=== PATIENT | female | born 1945 | race Caucasian/White ===

== ENCOUNTER 2022-09-25 13:03 | Inpatient (IN) | payer MEDICARE ==
[2022-09-25 13:40] LABS: #Eosinphils 0.2 thou/uL (0.0-0.7); #Monocytes 0.6 thou/uL (0.11-0.59); %Basophils 0.3 % (0.0-1.0); %Eosinophils 3.1 % (0.0-10.0); %Lymphocytes 19.3 % (21.0-51.0); %Monocytes 8.7 % (0.0-10.0); %Neutrophils 68.3 % (42.0-75.0); Hemoglobin 9.4 g/dL (12.0-16.0); Mean Corpuscular Hemoglobin 29.3 pg (27.0-31.0); Mean Corpuscular Volume 94.4 fl (78.0-98.0); Platelet Count 303 10x3/uL (130-400); RBC Distribution Width 15.9 % (11.5-14.5); Red Blood Cell (RBC) Count 3.21 mill/uL (4.20-5.40); White Blood Cell (WBC) Count 7.4 10x3/uL (4.8-10.8)
[2022-09-25 14:04] LABS: ALT (SGPT) 11 U/L (8-55); AST (SGOT) 16 U/L (5-34); Albumin 3.7 g/dL (3.4-4.8); Alkaline Phosphatase 75 U/L (40-110); Anion Gap 15 mmol/L (10-20); BUN (Urea Nitrogen) 13 mg/dL (9.8-20.1); Bilirubin, Total 1.3 mg/dL (0.2-1.2); Calc. Creatinine Clearance 0 mL/min (70-130); Calcium 8.7 mg/dL (7.8-10.44); Carbon Dioxide 27 mmol/L (23-31); Chloride 102 mmol/L (98-107); Estimated GFR 69; Globulin 2.4 g/dL (2.4-3.5); Glucose 94 mg/dL (83-110); Potassium 4.6 mmol/L (3.5-5.1); Protein, Total 6.1 g/dL (5.8-8.1); Sodium 139 mmol/L (136-145)
[2022-09-25] MEDS ORDERED: hydrALAZINE 20 MG/ML VIAL ONE (14:45)
[2022-09-25 16:07] LABS: Bacteria/HPF 2+ HPF (None Seen); Bilirubin Negative (Negative); Blood, Urine Negative (Negative); CAUTI Indications for Culture Dysuria,urgency,freq; Clarity Clear (Clear); Glucose, Urine (Dipstick) Normal (Negative); Ketone, Urine Negative (Negative); Leukocyte Negative Leu/uL (Negative); Nitrite 2+ (Negative); Protein, Urine (Dipstick) 20 mg/dL (Neg-Trace); RBC/HPF 0-3 HPF (0-3); Specific Gravity, Urine 1.019 (1.002-1.036); Squamous Epithelial 0-3 HPF (0-3); pH, Urine 5.5 (5.0-9.0)
[2022-09-25 16:10] LABS: Urine Culture Reflex No No
[2022-09-25] MEDS ORDERED: Meropenem 1 GM in Sodium Chloride 0.9% 100 ML IVPB SCH (16:45)
[2022-09-25] MEDS ORDERED: Boostrix 0.5 ML (Tdap) VIAL (>/=7 yrs of age) ONE (18:00)
[2022-09-25] MEDS ORDERED: diphenhydrAMINE 50 MG/ML VIAL IVP SCH ×2 (20:15→21:30)
[2022-09-25] MEDS ORDERED: Ipratropium/Albuterol 3 ML NEB NEB PRN (20:15)
[2022-09-25] MEDS ORDERED: Furosemide 20 MG/2 ML VIAL SLOW IVP SCH (20:15)
[2022-09-25] MEDS ORDERED: Ipratropium/Albuterol 3 ML NEB NEB SCH (20:15)
[2022-09-25] MEDS ORDERED: LevoFLOXacin 250 mg/D5W 250 MG in Premix Bag 1 BAG IVPB SCH ×2 (21:00→22:00)
[2022-09-25 22:04] VITALS: BMI 39.3
[2022-09-25] MEDS: Flecainide 50 MG TAB PO SCH (23:06)
[2022-09-26] MEDS ORDERED: Non-Formulary Item 1 EACH (Tiotropium Bromide 4 GM Inhaler) PO PRN (00:56)
[2022-09-26] MEDS ORDERED: Ipratropium Bromide 2.5 ml Neb NEB PRN (01:03)
[2022-09-26 04:13] LABS: #Eosinphils 0.3 thou/uL (0.0-0.7); #Monocytes 0.6 thou/uL (0.11-0.59); #Neutrophils 5.1 thou/uL (1.40-6.50); %Basophils 0.3 % (0.0-1.0); %Eosinophils 4.2 % (0.0-10.0); %Lymphocytes 20.7 % (21.0-51.0); %Monocytes 8.1 % (0.0-10.0); %Neutrophils 66.2 % (42.0-75.0); Hemoglobin 8.8 g/dL (12.0-16.0); Mean Corpuscular HGB CONC 30.6 g/dL (32.0-36.0); Mean Corpuscular Hemoglobin 29.6 pg (27.0-31.0); Mean Platelet Volume 10.1 fL (7.4-10.4); Platelet Count 324 10x3/uL (130-400); RBC Distribution Width 15.9 % (11.5-14.5); Red Blood Cell (RBC) Count 2.97 mill/uL (4.20-5.40); White Blood Cell (WBC) Count 7.6 10x3/uL (4.8-10.8)
[2022-09-26 04:36] LABS: ALT (SGPT) 12 U/L (8-55); AST (SGOT) 15 U/L (5-34); Albumin 3.3 g/dL (3.4-4.8); Alkaline Phosphatase 65 U/L (40-110); Anion Gap 19 mmol/L (10-20); BUN (Urea Nitrogen) 12 mg/dL (9.8-20.1); Bilirubin, Total 1.5 mg/dL (0.2-1.2); Calc. Creatinine Clearance 94 mL/min (70-130); Calcium 8.5 mg/dL (7.8-10.44); Carbon Dioxide 20 mmol/L (23-31); Chloride 105 mmol/L (98-107); Estimated GFR 76; Globulin 2.8 g/dL (2.4-3.5); Glucose 84 mg/dL (83-110); Potassium 3.9 mmol/L (3.5-5.1); Protein, Total 6.1 g/dL (5.8-8.1); Sodium 140 mmol/L (136-145)
[2022-09-26] MEDS ORDERED: Non-Formulary Item 1 EACH (Promethazine/Dextromethorphan [Promethazine-Dm 6.25-15 Mg/5ml] PO PRN (05:53)
[2022-09-26] MEDS ORDERED: Ipratropium Bromide 2.5 ml Neb FS PRN (05:53)
[2022-09-26] MEDS ORDERED: hydrALAZINE 25 MG TAB PO PRN (05:59)
[2022-09-26] MEDS ORDERED: BENZOCAINE PO SCH ×2 (06:00→08:00)
[2022-09-26] MEDS ORDERED: Acetaminophen 325 MG TAB PO PRN (06:01)
[2022-09-26] MEDS ORDERED: Guaifenesin DM 100-10/5 ML UDCUP PO PRN (06:03)
[2022-09-26] MEDS ORDERED: traMADol HCl 50 MG TAB PO PRN (06:10)
[2022-09-26] MEDS: Venlafaxine 75 MG TAB PO SCH ×2 (08:46→21:49)
[2022-09-26] MEDS: Flecainide 50 MG TAB PO SCH ×2 (08:46→21:49)
[2022-09-26] MEDS: Aspirin 81 mg Enteric Coated Tablet PO SCH (08:46)
[2022-09-26] MEDS: Famotidine 20 MG TAB PO SCH (08:46)
[2022-09-26] MEDS: Losartan 25 MG TAB PO SCH (08:46)
[2022-09-26] MEDS: Atorvastatin Calcium 20 MG TAB PO SCH (08:46)
[2022-09-26] MEDS: Ketoconazole 2% Cream 15 gm Tube TOP SCH ×2 (08:48→21:50)
[2022-09-26] MEDS: Polyethylene Glycol 3350 17 GM Packet PO SCH (08:48)
[2022-09-26] MEDS ORDERED: Atorvastatin Calcium 20 MG TAB PO SCH (09:00)
[2022-09-26] MEDS: Arformoterol 15 MCG/2 ML NEB NEB SCH ×2 (10:46→19:47)
[2022-09-26] MEDS: Mometasone 100 MCG/Formoterol 5 MCG 120 PUFF INHALER INH SCH ×2 (10:50→19:47)
[2022-09-26] MEDS ORDERED: Ipratropium/Albuterol 3 ML NEB NEB PRN (14:47)
[2022-09-26] MEDS: LevoFLOXacin 750 mg/D5W 750 MG in Premix Bag 1 BAG IVPB SCH (21:49)
[2022-09-27] MEDS: Arformoterol 15 MCG/2 ML NEB NEB SCH ×2 (07:16→19:08)
[2022-09-27] MEDS: Mometasone 100 MCG/Formoterol 5 MCG 120 PUFF INHALER INH SCH ×2 (07:18→19:08)
[2022-09-27] MEDS ORDERED: Phenol 118 ML BOT PO PRN (13:10)
[2022-09-27] MEDS: Aspirin 81 mg Enteric Coated Tablet PO SCH (13:46)
[2022-09-27] MEDS: Atorvastatin Calcium 20 MG TAB PO SCH (13:46)
[2022-09-27] MEDS: Losartan 25 MG TAB PO SCH (13:46)
[2022-09-27] MEDS: Famotidine 20 MG TAB PO SCH (13:46)
[2022-09-27] MEDS: Venlafaxine 75 MG TAB PO SCH ×2 (13:46→21:34)
[2022-09-27] MEDS: Flecainide 50 MG TAB PO SCH ×2 (13:46→21:34)
[2022-09-27] MEDS: Polyethylene Glycol 3350 17 GM Packet PO SCH (13:47)
[2022-09-27] MEDS: Ketoconazole 2% Cream 15 gm Tube TOP SCH ×2 (13:47→21:35)
[2022-09-27] MEDS: LevoFLOXacin 750 mg/D5W 750 MG in Premix Bag 1 BAG IVPB SCH (21:34)
[2022-09-28 04:26] LABS: #Eosinphils 0.3 thou/uL (0.0-0.7); #Monocytes 0.5 thou/uL (0.11-0.59); #Neutrophils 3.8 thou/uL (1.40-6.50); %Basophils 0.3 % (0.0-1.0); %Lymphocytes 26.1 % (21.0-51.0); %Monocytes 7.2 % (0.0-10.0); %Neutrophils 61.9 % (42.0-75.0); Hemoglobin 8.7 g/dL (12.0-16.0); Mean Corpuscular HGB CONC 30.9 g/dL (32.0-36.0); Mean Corpuscular Hemoglobin 29.5 pg (27.0-31.0); Mean Corpuscular Volume 95.6 fl (78.0-98.0); Mean Platelet Volume 9.8 fL (7.4-10.4); Platelet Count 347 10x3/uL (130-400); RBC Distribution Width 15.9 % (11.5-14.5); Red Blood Cell (RBC) Count 2.95 mill/uL (4.20-5.40); White Blood Cell (WBC) Count 6.2 10x3/uL (4.8-10.8)
[2022-09-28 04:49] LABS: ALT (SGPT) 10 U/L (8-55); AST (SGOT) 17 U/L (5-34); Albumin 3.1 g/dL (3.4-4.8); Alkaline Phosphatase 63 U/L (40-110); Anion Gap 17 mmol/L (10-20); BUN (Urea Nitrogen) 12 mg/dL (9.8-20.1); Bilirubin, Total 0.9 mg/dL (0.2-1.2); Calc. Creatinine Clearance 95 mL/min (70-130); Calcium 8.7 mg/dL (7.8-10.44); Carbon Dioxide 22 mmol/L (23-31); Chloride 104 mmol/L (98-107); Estimated GFR 77; Globulin 2.8 g/dL (2.4-3.5); Glucose 74 mg/dL (83-110); Potassium 3.6 mmol/L (3.5-5.1); Protein, Total 5.9 g/dL (5.8-8.1); Sodium 139 mmol/L (136-145)
[2022-09-28] MEDS: Mometasone 100 MCG/Formoterol 5 MCG 120 PUFF INHALER INH SCH ×2 (07:56→19:32)
[2022-09-28] MEDS: Arformoterol 15 MCG/2 ML NEB NEB SCH ×2 (08:00→19:30)
[2022-09-28] MEDS: Atorvastatin Calcium 20 MG TAB PO SCH (09:25)
[2022-09-28] MEDS: Aspirin 81 mg Enteric Coated Tablet PO SCH (09:25)
[2022-09-28] MEDS: Venlafaxine 75 MG TAB PO SCH ×2 (09:25→21:13)
[2022-09-28] MEDS: Famotidine 20 MG TAB PO SCH (09:25)
[2022-09-28] MEDS: Losartan 25 MG TAB PO SCH (09:25)
[2022-09-28] MEDS: Flecainide 50 MG TAB PO SCH ×2 (09:25→21:13)
[2022-09-28] MEDS: Ketoconazole 2% Cream 15 gm Tube TOP SCH ×2 (09:27→21:30)
[2022-09-28] MEDS: Polyethylene Glycol 3350 17 GM Packet PO SCH (09:28)
[2022-09-28] MEDS ORDERED: Dextrose 50% Abboject 50 ML SYRINGE SLOW IVP PRN (12:35)
[2022-09-28] MEDS ORDERED: Dextrose 5% in Water 1,000 ML IV PRN (12:35)
[2022-09-28] MEDS ORDERED: Glucagon 1 MG/ML KIT IM PRN (12:35)
[2022-09-28] MEDS: LevoFLOXacin 750 mg/D5W 750 MG in Premix Bag 1 BAG IVPB SCH (21:13)
[2022-09-29 05:07] LABS: #Eosinphils 0.3 thou/uL (0.0-0.7); #Monocytes 0.7 thou/uL (0.11-0.59); #Neutrophils 4.4 thou/uL (1.40-6.50); %Basophils 0.3 % (0.0-1.0); %Eosinophils 3.6 % (0.0-10.0); %Lymphocytes 25.4 % (21.0-51.0); %Monocytes 9.4 % (0.0-10.0); %Neutrophils 60.7 % (42.0-75.0); Hemoglobin 9.5 g/dL (12.0-16.0); Mean Corpuscular HGB CONC 30.5 g/dL (32.0-36.0); Mean Corpuscular Hemoglobin 29.2 pg (27.0-31.0); Mean Corpuscular Volume 95.7 fl (78.0-98.0); Mean Platelet Volume 10.3 fL (7.4-10.4); Platelet Count 350 10x3/uL (130-400); Red Blood Cell (RBC) Count 3.25 mill/uL (4.20-5.40); White Blood Cell (WBC) Count 7.2 10x3/uL (4.8-10.8)
[2022-09-29 05:31] LABS: ALT (SGPT) 9 U/L (8-55); AST (SGOT) 15 U/L (5-34); Albumin 3.2 g/dL (3.4-4.8); Alkaline Phosphatase 64 U/L (40-110); Anion Gap 16 mmol/L (10-20); BUN (Urea Nitrogen) 11 mg/dL (9.8-20.1); Bilirubin, Total 0.8 mg/dL (0.2-1.2); Calc. Creatinine Clearance 94 mL/min (70-130); Calcium 8.6 mg/dL (7.8-10.44); Carbon Dioxide 23 mmol/L (23-31); Chloride 102 mmol/L (98-107); Estimated GFR 76; Globulin 2.8 g/dL (2.4-3.5); Glucose 94 mg/dL (83-110); Potassium 3.7 mmol/L (3.5-5.1); Sodium 137 mmol/L (136-145)
[2022-09-29] MEDS: Mometasone 100 MCG/Formoterol 5 MCG 120 PUFF INHALER INH SCH (07:36)
[2022-09-29] MEDS: Arformoterol 15 MCG/2 ML NEB NEB SCH (07:39)
[2022-09-29] MEDS: Aspirin 81 mg Enteric Coated Tablet PO SCH (10:03)
[2022-09-29] MEDS: Atorvastatin Calcium 20 MG TAB PO SCH (10:03)
[2022-09-29] MEDS: Venlafaxine 75 MG TAB PO SCH (10:03)
[2022-09-29] MEDS: Flecainide 50 MG TAB PO SCH (10:03)
[2022-09-29] MEDS: Ketoconazole 2% Cream 15 gm Tube TOP SCH (10:04)
[2022-09-29] MEDS: Famotidine 20 MG TAB PO SCH (10:04)
[2022-09-29] MEDS: Losartan 25 MG TAB PO SCH (10:04)
[2022-09-29] MEDS: Polyethylene Glycol 3350 17 GM Packet PO SCH (10:05)
[2022-09-29] MEDS: Ipratropium/Albuterol 3 ML NEB NEB SCH ×2 (10:41→14:21)
[2022-09-29 12:04] VITALS: TEMP 98.2
[2022-09-29 16:45] VITALS: BP 126/62
[2022-09-29] MEDS: LevoFLOXacin 750 mg/D5W 750 MG in Premix Bag 1 BAG IVPB SCH (17:51)
== END 2022-09-29 19:40 | DRG 689 ==
LOC: ERS 13:03 → 2NO 19:37
PROVIDERS: ADMIT Family Medicine; ATTEND Family Medicine
PROC: 0T9B70Z Drainage of Bladder with Drainage Device, Via Natural or Artificial Opening (ICD-10-PCS; principal; 2022-09-25)
PROC: 5A09357 Assistance with Respiratory Ventilation, Less than 24 Consecutive Hours, Continuous Positive Airway Pressure (ICD-10-PCS; 2022-09-27)
DX: N39.0 Urinary tract infection, site not specified (principal); G93.41 Metabolic encephalopathy; J44.9 Chronic obstructive pulmonary disease, unspecified; I10 Essential (primary) hypertension; F32.A Depression, unspecified; G47.33 Obstructive sleep apnea (adult) (pediatric); F41.9 Anxiety disorder, unspecified; B96.1 Klebsiella pneumoniae [K. pneumoniae] as the cause of diseases classified elsewhere; K59.00 Constipation, unspecified; I48.91 Unspecified atrial fibrillation; Z66 Do not resuscitate; Z80.42 Family history of malignant neoplasm of prostate; Z80.0 Family history of malignant neoplasm of digestive organs; Z88.1 Allergy status to other antibiotic agents; Z88.0 Allergy status to penicillin; Z79.899 Other long term (current) drug therapy; R53.81 Other malaise
CPT/HCPCS: 36415; 51701; 70450; 71045; 72125; 74230; 80053; 81001; 83880; 84484; 85025; 87077; 87086; 87186; 90715; 93005; 94640; 96365; J0360; J1200; J1650; J1940; J1956; J2185; J3490; J7620